=== PATIENT | female | born 1970 | race Caucasian/White ===

== ENCOUNTER → 2019-07-19 11:30 | Outpatient (BNVA) | payer BC, SELFPAY | PROVIDERS: PCP Family Medicine; Visit Provider Internal Medicine Rheumatology | DX: M35.00 Sjogren syndrome, unspecified (principal); Z79.899 Other long term (current) drug therapy; Z11.59 Encounter for screening for other viral diseases; Z11.1 Encounter for screening for respiratory tuberculosis; R76.8 Other specified abnormal immunological findings in serum; M19.90 Unspecified osteoarthritis, unspecified site; Z72.89 Other problems related to lifestyle; I73.00 Raynaud's syndrome without gangrene | CPT/HCPCS: 36415; 99204 ==

== ENCOUNTER 2019-07-19 13:33 | Outpatient (CLI) | payer BC, SELFPAY ==
--- NOTE | 2019-07-19 13:41 | XR_ITS ---
WS: [id number] HIPS BILATERAL TECHNIQUE: 5 views bilateral hips Including pelvis CLINICAL INFORMATION: inflammatory arthritis COMPARISON: None. FINDINGS: Osteopenia. Mild degenerative arthritis both hips with joint space narrowing. No acute fractures. Nor mal pubic rami. XR/XR hip BI 3-4V wo/w pel [id number] IMPRESSION: Mild degenerative arthritis both hips with joint space narrowing.
== END 2019-07-19 13:34 | disposition home or self-care (01) ==
LOC: RADWPI 13:36
PROVIDERS: Family Provider Family Medicine; PCP Family Medicine; Visit Provider Internal Medicine Rheumatology
DX: M35.00 Sjogren syndrome, unspecified (principal); Z79.899 Other long term (current) drug therapy; Z11.59 Encounter for screening for other viral diseases; Z11.1 Encounter for screening for respiratory tuberculosis; R76.8 Other specified abnormal immunological findings in serum; M19.90 Unspecified osteoarthritis, unspecified site; Z72.89 Other problems related to lifestyle; I73.00 Raynaud's syndrome without gangrene; M16.0 Bilateral primary osteoarthritis of hip
CPT/HCPCS: 73522; 80076; 81001; 82085; 82306; 82550; 82565; 82570; 83735; 84132; 84156; 85025; 85651; 86140; 86160; 86225; 86480; 86704

== ENCOUNTER 2019-09-20 13:56 | Outpatient (CLI) | payer BC, SELFPAY ==
--- NOTE | 2019-09-20 14:04 | CT_ITS ---
WS: [id number] CT NECK WITH CONTRAST HISTORY: CHRONIC SIALOADENITIS TECHNIQUE: Contiguous 5 mm axial images are performed through the neck with intravenous contrast. Sag ittal and coronal reformats are also submitted. All CT scans at [facility] use at least o ne of these dose optimization techniques: automated exposure control; mA and/or kV adjustment per pat ient size (includes targeted exams where dose is matched to clinical indication); or iterative recons truction. CONTRAST: CONTRAST: Omnipaque 300; 95 mL IV. DLP: 2407.32 mGycm COMPARISON: None available. Nasopharynx, oropharynx, hypopharynx and larynx are unremarkable. No soft tissue masses or abnormal e nhancement. Torus tubarius and fossa of Rosenmuller and parapharyngeal fat are normal. Bilateral small cervical chain lymph nodes. Largest lymph nodes are at level 2 measuring up to 7 mm. Small lymph nodes at level IV, level V, and level III also present. Normal size thyroid gland. Moderate enlargement of the parotid glands. Parotid glands extend over a length of at least 6.4 cm. T here is variable density within the parotid glands. There are small tiny cystic areas in each glands and increased density. There are a few tiny microcalcifications noted bilaterally. No large enhancing nodules. There is no adjacent inflammation to suggest an acute inflammatory process. Submandibular g lands are small caliber have a similar appearance. No osseous abnormalities. Visualized portions of the skull base demonstrate no abnormalities. Orbits and globes are within norm al limits. No soft tissue masses. Visualized paranasal sinuses and mastoid air cells are normal. Lung apices are clear. CT/CT neck w con* [id number] IMPRESSION: 1. Bilateral parotid gland enlargement with small cystic areas and calcificat ions noted bilaterally. Consistent with a history of Sjogren's disease. 2. No acute inflammation and no calcifications within the parotid ducts. 3. Benign bilateral cervical chain lymph nodes.
[2019-09-20] MEDS: iohexol 300 mg/mL 100 mL Btl IV (14:56)
== END 2019-09-20 13:57 | disposition home or self-care (01) ==
LOC: RADWPI 13:59
PROVIDERS: Family Provider Nurse Practitioner Family; PCP Nurse Practitioner Family; Visit Provider Specialist
DX: K11.23 Chronic sialoadenitis (principal); R59.0 Localized enlarged lymph nodes
CPT/HCPCS: 70491; Q9967

== ENCOUNTER → 2019-10-21 13:19 | Outpatient (BNVA) | payer BC, SELFPAY | PROVIDERS: Family Provider Nurse Practitioner Family; PCP Nurse Practitioner Family; Visit Provider Nurse Practitioner Family | DX: U07.1 COVID-19 (principal) | CPT/HCPCS: 87635 ==

== ENCOUNTER → 2021-12-24 18:10 | Outpatient (BNVA) | payer BC, SELFPAY | PROVIDERS: Family Provider Nurse Practitioner Family; PCP Nurse Practitioner Family; Visit Provider Family Medicine | DX: S30.860A Insect bite (nonvenomous) of lower back and pelvis, initial encounter (principal); W57.XXXA Bitten or stung by nonvenomous insect and other nonvenomous arthropods, initial encounter; M35.00 Sjogren syndrome, unspecified | CPT/HCPCS: 80053; 80061; 85025; 86618; 86666; 86757 ==

== ENCOUNTER → 2022-01-10 16:45 | Outpatient (BNVA) | payer BC, SELFPAY | PROVIDERS: Family Provider Nurse Practitioner Family; PCP Nurse Practitioner Family; Visit Provider Family Medicine | DX: R05.9 Cough, unspecified (principal) | CPT/HCPCS: 87400 ==

== ENCOUNTER → 2022-04-01 17:25 | Outpatient (BNVA) | payer BC, SELFPAY | PROVIDERS: Family Provider Nurse Practitioner Family; PCP Nurse Practitioner Family; Visit Provider Nurse Practitioner Family | DX: R30.0 Dysuria (principal) | CPT/HCPCS: 81003 ==

== ENCOUNTER 2022-06-04 06:00 | Outpatient (RCR) | payer BC, SELFPAY | END 2022-06-09 23:59 | disposition home or self-care (01) | LOC: SPT 06:00 | PROVIDERS: Visit Provider Nurse Practitioner Family | DX: R42 Dizziness and giddiness (principal) | CPT/HCPCS: 95992; 97161 ==

== ENCOUNTER → 2022-11-13 14:04 | Outpatient (BNVA) | payer BC, OTHER, SELFPAY | PROVIDERS: PCP Nurse Practitioner Family; Visit Provider Nurse Practitioner Family | DX: R10.9 Unspecified abdominal pain (principal) | CPT/HCPCS: 81000 ==

== ENCOUNTER → 2022-11-25 16:05 | Outpatient (BNVA) | payer OTHER, BC, SELFPAY | PROVIDERS: PCP Nurse Practitioner Family; Visit Provider Nurse Practitioner Family | DX: R10.9 Unspecified abdominal pain (principal); N39.0 Urinary tract infection, site not specified; M35.00 Sjogren syndrome, unspecified; M19.90 Unspecified osteoarthritis, unspecified site; R76.8 Other specified abnormal immunological findings in serum | CPT/HCPCS: 80053; 80061; 85651; 86141; 86160; 86162; 86200; 86235; 86255; 86376; 86431 ==

== ENCOUNTER → 2023-07-09 13:25 | Outpatient (BNVA) | payer OTHER, BC, SELFPAY | PROVIDERS: PCP Nurse Practitioner Family; Visit Provider Nurse Practitioner Family | DX: N39.0 Urinary tract infection, site not specified (principal) | CPT/HCPCS: 81000 ==

== ENCOUNTER → 2023-10-25 18:58 | Outpatient (BNVA) | payer OTHER, BC, SELFPAY | PROVIDERS: PCP Nurse Practitioner Family; Visit Provider Emergency Medicine | DX: R39.9 Unspecified symptoms and signs involving the genitourinary system (principal); N12 Tubulo-interstitial nephritis, not specified as acute or chronic | CPT/HCPCS: 81000; 87077; 87086; 87184 ==

== ENCOUNTER → 2023-11-19 14:09 | Outpatient (BNVA) | payer OTHER, BC, SELFPAY | PROVIDERS: PCP Nurse Practitioner Family; Visit Provider Nurse Practitioner Family | DX: R39.9 Unspecified symptoms and signs involving the genitourinary system (principal) | CPT/HCPCS: 81000 ==

== ENCOUNTER → 2023-12-25 15:13 | Outpatient (BNVA) | payer OTHER, BC, SELFPAY | PROVIDERS: PCP Nurse Practitioner Family; Visit Provider Nurse Practitioner Family | DX: R39.9 Unspecified symptoms and signs involving the genitourinary system (principal) | CPT/HCPCS: 81000 ==

== ENCOUNTER 2024-01-12 12:07 | Outpatient (CLI) | payer OTHER, BC, SELFPAY ==
--- NOTE | 2024-01-12 12:45 | US_ITS ---
WS: [id number] RENAL ULTRASOUND URINARY BLADDER ULTRASOUND HISTORY: R39.11 - Hesitancy of micturition COMPARISON: None available. TECHNIQUE: 2-D and color Doppler imaging of the kidney submitted. Right kidney: 11.0 cm x 4.7 cm x 5.0 cm. Normal echogenicity with no hydronephrosis or mass. Left kidney: 10.1 cm x 4.8 cm x 5.3 cm. Normal echogenicity with no hydronephrosis or mass. Aorta: Normal. Urinary Bladder: Normal distention. Prevoid: 498 mL. Post void: 81 mL. US/US renal BI with PV bladder IMPRESSION: 1. No renal atrophy or obstruction. 2. No solid renal mass. 3. Mild post void residual. 4. No ureteral obstruction. Bilateral ureteral jets are identified in the [place]ad [place].
== END 2024-01-12 12:08 | disposition home or self-care (01) ==
LOC: RAD 12:08
PROVIDERS: PCP Nurse Practitioner Family; Visit Provider Nurse Practitioner Family
DX: R39.11 Hesitancy of micturition (principal)
CPT/HCPCS: 76770; 76857